=== PATIENT | male | born 1975 | race Caucasian/White ===

== ENCOUNTER 2019-10-01 12:16 | Inpatient (IN) | payer BC, OTHER ==
[~2019-10-01] VITALS: Ht 177.8 cm; Wt 97.7 kg
[2019-10-01] MEDS ORDERED: aspirin 81mg tab.chew PO ONE ×2 (12:50→15:15)
[2019-10-01 13:27] LABS: BASOPHILS % (AUTO) 0.4 % (0-1); EOSINOPHILS # (AUTO) 0.2 X10'3 (0-0.9); EOSINOPHILS % (AUTO) 1.5 % (0-6); HEMATOCRIT 43.3 % (42.0-52.0); HEMOGLOBIN 14.5 g/dl (14.0-17.9); LYMPHOCYTES # (AUTO) 0.9 X10'3 (1.1-4.8); LYMPHOCYTES % (AUTO) 8.3 % (21-51); MEAN CORPUSCULAR HEMOGLOBIN 29.5 PG (27.0-31.0); MEAN CORPUSCULAR HGB CONC 33.4 g/dL (33.0-36.5); MEAN CORPUSCULAR VOLUME 88.4 FL (78-98); MONOCYTES % (AUTO) 9.4 % (2-12); NEUTROPHILS # (AUTO) 8.8 X10'3 (1.8-7.7); NEUTROPHILS % (AUTO) 80.4 % (42-75); PLATELET COUNT 134 X10'3 (140-440); RED CELL DISTRIBUTION WIDTH 13.4 % (11.5-14.5)
[2019-10-01 13:34] LABS: D-DIMER 0.34 MG/L FEU (0-0.50)
[2019-10-01 13:42] LABS: ALANINE AMINOTRANSFERASE 21 U/L (12-78); ALBUMIN 3.8 G/DL (3.4-5.0); ALKALINE PHOSPHATASE 55 IU/L (46-116); ANION GAP 9 (8-16); ASPARTATE AMINO TRANSFERASE 19 U/L (10-37); BILIRUBIN,TOTAL 0.7 MG/DL (0.1-1.0); BLOOD UREA NITROGEN 18 MG/DL (7-18); BUN/CREATININE RATIO 15.4 (5.4-32.0); CALCIUM 8.6 MG/DL (8.5-10.1); CHLORIDE 101 MMOL/L (99-107); CREATININE 1.17 MG/DL (0.60-1.10); GLUCOSE 119 MG/DL (70-104); POTASSIUM 3.9 MMOL/L (3.5-5.1); SODIUM 136 MMOL/L (135-145); TOTAL CARBON DIOXIDE 25.6 MMOL/L (24-32); TOTAL PROTEIN 7.8 G/DL (6.4-8.2); eGFR 68 ML/MIN
[2019-10-01 13:48] LABS: MAGNESIUM 1.8 MG/DL (1.5-2.4)
[2019-10-01] MEDS ORDERED: predniSONE 20 mg tablet PO ONE (13:55)
[2019-10-01] MEDS ORDERED: normal saline 1000ML IV soln IVB ONE (13:55)
[2019-10-01] MEDS ORDERED: acetaminophen 325mg tablet PO ONE (13:55)
[2019-10-01] MEDS ORDERED: heparin 10,000 units/1 ML INJ IV PRN (15:05)
[2019-10-01] MEDS ORDERED: heparin 10,000 units/1 ML INJ IV ONE ×2 (15:05→15:15)
[2019-10-01] MEDS: heparin 25,000 UNIT/250ml bag 250 ML IV SCH (15:18)
[2019-10-01] MEDS ORDERED: LEVO25TA2 PO (15:28)
--- NOTE | 2019-10-01 15:41 | NUR ---
ECHO AT BEDSIDE
[2019-10-01 15:46] LABS: PARTIAL THROMBOPLASTIN TIME 31 SECONDS (22-32)
[2019-10-01] MEDS ORDERED: magnesium 4gm in 100ml NS 100 ML IV PRN (16:40)
[2019-10-01] MEDS ORDERED: magnesium 2GM in 50ml NS 50 ML IV PRN (16:40)
[2019-10-01] MEDS ORDERED: morphine 2 MG/ML inj. syringe IV PRN ×2 (16:40)
[2019-10-01] MEDS ORDERED: magnesium Cl slow-release 64mg tablet PO PRN (16:40)
[2019-10-01] MEDS ORDERED: ipratropium/albuterol 3ml nebule NEB PRN (16:40)
[2019-10-01] MEDS ORDERED: diphenhydrAMINE 25mg capsule PO PRN (16:40)
[2019-10-01] MEDS ORDERED: acetaminophen 650mg rectal suppository RC PRN (16:40)
[2019-10-01] MEDS ORDERED: HYDROcodone/acetaminophen 10/325mg tab PO PRN (16:40)
[2019-10-01] MEDS ORDERED: mag hydrox/Alum hydrox/simeth 30ml oral suspension PO PRN (16:40)
[2019-10-01] MEDS ORDERED: potassium Cl 20 mEq SR tablet PO PRN ×2 (16:40)
[2019-10-01] MEDS ORDERED: acetaminophen 325mg tablet PO PRN ×2 (16:40)
[2019-10-01] MEDS ORDERED: bisacodyl 10mg suppository rectal RC PRN (16:40)
[2019-10-01] MEDS ORDERED: ondansetron/PF 4mg/2ml inj IV PRN (16:40)
[2019-10-01] MEDS ORDERED: potassium CL 10mEq/100ml bag 100 ML IV PRN ×2 (16:40)
[2019-10-01] MEDS ORDERED: HYDROcodone/acetaminophen 5mg/325mg tablet PO PRN (16:40)
[2019-10-01] MEDS ORDERED: magnesium hydroxide 30ml (MOM) UD suspension PO PRN (16:40)
[2019-10-01 18:09] LABS: HEMOGLOBIN A1C 5.8 % (4.5-6.2)
[2019-10-01] MEDS: normal saline 1000ml 1,000 ML IV SCH (18:24)
[2019-10-01] MEDS ORDERED: TEST200V10 IM (18:55)
[2019-10-01] MEDS: K and/or MAG REPLACEMENT MC SCH (20:00)
[2019-10-01] MEDS ORDERED: heparin, porcine 5000 units/ml vial SQ SCH (20:00)
[2019-10-01 22:00] VITALS: BP 109/60
--- NOTE | 2019-10-01 22:51 | NUR ---
12 leak EKG obtained per protocol. No new finding when compared to the previous EKG. Bob, the charge nurse reviewed the EKG. Patient is asymptomatic, no chest pain or shortness of breath.
[2019-10-02] VITALS (11 sets, daily range): BP systolic 101–130; BP diastolic 42–63
[2019-10-02] MEDS: normal saline 1000ml 1,000 ML IV SCH ×2 (02:24→12:39)
[2019-10-02 05:25] LABS: BASOPHILS % (AUTO) 0.5 % (0-1); EOSINOPHILS % (AUTO) 0.1 % (0-6); HEMATOCRIT 40.7 % (42.0-52.0); HEMOGLOBIN 13.5 g/dl (14.0-17.9); LYMPHOCYTES # (AUTO) 1.3 X10'3 (1.1-4.8); LYMPHOCYTES % (AUTO) 15.3 % (21-51); MEAN CORPUSCULAR HGB CONC 33.3 g/dL (33.0-36.5); MEAN CORPUSCULAR VOLUME 90.2 FL (78-98); MEAN PLATELET VOLUME 10.7 FL (7.4-10.4); MONOCYTES # (AUTO) 0.7 X10'3 (0-0.9); MONOCYTES % (AUTO) 8.3 % (2-12); NEUTROPHILS # (AUTO) 6.5 X10'3 (1.8-7.7); NEUTROPHILS % (AUTO) 75.8 % (42-75); PLATELET COUNT 120 X10'3 (140-440); RED BLOOD COUNT 4.51 X10'6 (4.70-6.10); RED CELL DISTRIBUTION WIDTH 13.5 % (11.5-14.5); WHITE BLOOD COUNT 8.6 X10'3 (4.5-11.0)
[2019-10-02 05:43] LABS: ALANINE AMINOTRANSFERASE 18 U/L (12-78); ALBUMIN 3.1 G/DL (3.4-5.0); ALBUMIN/GLOBULIN RATIO 0.8 (1.1-1.5); ALKALINE PHOSPHATASE 47 IU/L (46-116); ANION GAP 10 (8-16); ASPARTATE AMINO TRANSFERASE 11 U/L (10-37); BILIRUBIN,TOTAL 0.5 MG/DL (0.1-1.0); BLOOD UREA NITROGEN 17 MG/DL (7-18); BUN/CREATININE RATIO 18.1 (5.4-32.0); CALCIUM 8.3 MG/DL (8.5-10.1); CHLORIDE 105 MMOL/L (99-107); CHOLESTEROL 146 MG/DL (0-200); CREATININE 0.94 MG/DL (0.60-1.10); GLUCOSE 135 MG/DL (70-104); HDL CHOLESTEROL 48 MG/DL (35-60); LDL CHOLESTEROL 83 MG/DL (50-100); MAGNESIUM 2.1 MG/DL (1.5-2.4); POTASSIUM 4.1 MMOL/L (3.5-5.1); SODIUM 140 MMOL/L (135-145); TRIGLYCERIDES 61 MG/DL (20-135); eGFR 87 ML/MIN
[2019-10-02] MEDS: heparin 25,000 UNIT/250ml bag 250 ML IV SCH (06:00)
--- NOTE | 2019-10-02 06:00 | NUR ---
Patient in room PCU 3022. I have received report from Walter HARRIS and had the opportunity to ask questions and assume patient care.
--- NOTE | 2019-10-02 06:24 | NUR ---
Problems reprioritized. Patient report given Gordo, questions answered & plan of care reviewed with .
[2019-10-02] MEDS: K and/or MAG REPLACEMENT MC SCH (07:48)
[2019-10-02] MEDS ORDERED: levoTHYROXINE 25mcg tablet PO SCH (08:00)
[2019-10-02] MEDS ORDERED: aminophylline 250mg/10ml inj. IV PRN (09:05)
[2019-10-02] MEDS ORDERED: metoprolol tartrate 1mg/ml inj IV PRN (09:05)
[2019-10-02] MEDS ORDERED: regadenoson 0.4mg/5ml syringe IV ONE (09:05)
[2019-10-02] MEDS ORDERED: nitroGLYCERIN 0.4mg SUBLingual tab SL PRN (09:05)
[2019-10-02] MEDS ORDERED: ALBU8.5H8 INH (13:30)
--- NOTE | 2019-10-02 14:11 | NUR ---
Called in new prescription to [facility] Katiana
--- NOTE | 2019-10-02 14:40 | NUR ---
Per MD orders, patient stable for discharge home. Discharge instructions reviewed with patient and all questions answered to patient satisfaction. New prescriptions called in to pharmacy of preference. PIV discontinued; cannula intact. Tele monitoring discontinued. All belongings sent with patient. Ambulated to private vehicle.
== END 2019-10-02 18:41 | disposition home or self-care (01) | DRG 866 ==
LOC: ER 12:17 → ED HOLD 16:39 → PCU 3S 22:12
PROVIDERS: ADMIT Family Medicine; ATTEND Internal Medicine Cardiovascular Disease
DX: B34.9 Viral infection, unspecified (principal); J45.901 Unspecified asthma with (acute) exacerbation; E86.0 Dehydration; G47.30 Sleep apnea, unspecified; Z82.49 Family history of ischemic heart disease and other diseases of the circulatory system; Z20.828 Contact with and (suspected) exposure to other viral communicable diseases
CPT/HCPCS: 36415; 71045; 78452; 80053; 80061; 83036; 83605; 83735; 83880; 84100; 84145; 84443; 84484; 85025; 85379; 85610; 85730; 87040; 87081; 87502; 87503; 87635; 93005; 93017; 93306; 94760; 99285; A9500; G0378; J1644; J2785; J7030; J7512

== ENCOUNTER 2020-08-28 11:04 | Emergency (ER) | payer BC ==
[~2020-08-28] VITALS: Ht 177.8 cm; Wt 106.8 kg
[~2020-08-28 11:04] MED LIST: ALBU8.5H8 INH; LEVO25TA2 PO; LIDOcaine 1% W/epiNEPHrine 1:100,000 20ml vial ONE; TEST200V10 IM
[2020-08-28 11:09] VITALS: BP 143/95
[2020-08-28] MEDS ORDERED: CEPH250T PO (12:20)
== END 2020-08-28 12:37 | disposition home or self-care (01) ==
LOC: ER 11:04
DX: L02.511 Cutaneous abscess of right hand (principal); F15.90 Other stimulant use, unspecified, uncomplicated; Z79.899 Other long term (current) drug therapy
CPT/HCPCS: 26010; 99283

== ENCOUNTER 2020-11-14 16:01 | Emergency (ER) | payer BC ==
[~2020-11-14] VITALS: Ht 177.8 cm; Wt 100.0 kg
[~2020-11-14 16:01] MED LIST changes: -LIDOcaine 1% W/epiNEPHrine 1:100,000 20ml vial ONE
[2020-11-14 16:17] VITALS: BP 113/68
[2020-11-14] MEDS ORDERED: IBUP-1984 PO (18:04)
[2020-11-14] MEDS ORDERED: ketorolac tromethamine 15mg/ml inj. IM ONE (18:05)
== END 2020-11-14 18:31 | disposition home or self-care (01) ==
LOC: ER 16:02
DX: M79.671 Pain in right foot (principal); E07.9 Disorder of thyroid, unspecified; F15.90 Other stimulant use, unspecified, uncomplicated; Z79.899 Other long term (current) drug therapy
CPT/HCPCS: 73630; 96372; 99283; J1885

== ENCOUNTER 2020-12-04 12:35 | Emergency (ER) | payer BC ==
[~2020-12-04] VITALS: Ht 177.8 cm; Wt 100.0 kg
[~2020-12-04 12:35] MED LIST changes: +ALBU8.5H17 INH; -ALBU8.5H8 INH
--- NOTE | 2020-12-04 12:45 | NUR ---
EKG 1240 LM
[2020-12-04 13:07] LABS: BASOPHILS # (AUTO) 0.1 X10'3 (0-0.2); BASOPHILS % (AUTO) 0.6 % (0-1); EOSINOPHILS # (AUTO) 0.5 X10'3 (0-0.9); HEMATOCRIT 38.1 % (42.0-52.0); LYMPHOCYTES % (AUTO) 20.4 % (21-51); MEAN CORPUSCULAR HEMOGLOBIN 30.2 PG (27.0-31.0); MEAN CORPUSCULAR HGB CONC 34.3 g/dL (33.0-36.5); MEAN CORPUSCULAR VOLUME 88.2 FL (78-98); MEAN PLATELET VOLUME 10.4 FL (7.4-10.4); MONOCYTES # (AUTO) 1.1 X10'3 (0-0.9); MONOCYTES % (AUTO) 11.7 % (2-12); NEUTROPHILS # (AUTO) 5.9 X10'3 (1.8-7.7); NEUTROPHILS % (AUTO) 62.3 % (42-75); PLATELET COUNT 138 X10'3 (140-440); RED BLOOD COUNT 4.32 X10'6 (4.70-6.10); RED CELL DISTRIBUTION WIDTH 12.8 % (11.5-14.5); WHITE BLOOD COUNT 9.6 X10'3 (4.5-11.0)
[2020-12-04 13:27] VITALS: BP 104/66
[2020-12-04 13:27] LABS: ALANINE AMINOTRANSFERASE 13 U/L (12-78); ALBUMIN 3.6 G/DL (3.4-5.0); ALBUMIN/GLOBULIN RATIO 0.9 (1.1-1.5); ALKALINE PHOSPHATASE 67 IU/L (46-116); ANION GAP 10 (8-16); ASPARTATE AMINO TRANSFERASE 14 U/L (10-37); BILIRUBIN,TOTAL 0.5 MG/DL (0.1-1.0); BLOOD UREA NITROGEN 21 MG/DL (7-18); BUN/CREATININE RATIO 19.6 (5.4-32.0); CALCIUM 8.4 MG/DL (8.5-10.1); CHLORIDE 105 MMOL/L (99-107); CREATININE 1.07 MG/DL (0.60-1.10); GLUCOSE 117 MG/DL (70-104); POTASSIUM 4.1 MMOL/L (3.5-5.1); SODIUM 142 MMOL/L (135-145); TOTAL CARBON DIOXIDE 26.9 MMOL/L (24-32); TOTAL PROTEIN 7.5 G/DL (6.4-8.2); eGFR 75 ML/MIN
[2020-12-04] MEDS ORDERED: OMEP40CA21 PO (13:36)
--- NOTE | 2020-12-04 14:10 | NUR ---
PT TI'S GI COCKTAIL PRIOR TO D/C, NOTIFIED
[2020-12-04] MEDS ORDERED: LIDOcaine Viscous 15ml cup MM ONE (14:30)
[2020-12-04] MEDS ORDERED: mag hydrox/Alum hydrox/simeth 30ml oral suspension PO ONE (14:30)
== END 2020-12-04 14:41 | disposition home or self-care (01) ==
LOC: ER 12:36
DX: R12 Heartburn (principal); E07.9 Disorder of thyroid, unspecified; R94.31 Abnormal electrocardiogram [ECG] [EKG]; F15.90 Other stimulant use, unspecified, uncomplicated; Z79.899 Other long term (current) drug therapy
CPT/HCPCS: 36415; 80053; 84484; 85025; 93005; 99291

== ENCOUNTER 2021-10-04 09:26 | Inpatient (IN) | payer BC ==
[~2021-10-04] VITALS: Ht 177.8 cm; Wt 105.0 kg
[~2021-10-04 09:26] MED LIST changes: -TEST200V10 IM; +TEST200V33 IM
[2021-10-04 10:15] LABS: BASOPHILS # (AUTO) 0.1 X10'3 (0-0.2); BASOPHILS % (AUTO) 0.7 % (0-1); EOSINOPHILS # (AUTO) 0.2 X10'3 (0-0.9); EOSINOPHILS % (AUTO) 1.4 % (0-6); HEMATOCRIT 38.1 % (42.0-52.0); HEMOGLOBIN 12.9 g/dl (14.0-17.9); LYMPHOCYTES # (AUTO) 1.8 X10'3 (1.1-4.8); LYMPHOCYTES % (AUTO) 15.8 % (21-51); MEAN CORPUSCULAR HEMOGLOBIN 30.2 PG (27.0-31.0); MEAN CORPUSCULAR HGB CONC 33.8 g/dL (33.0-36.5); MEAN CORPUSCULAR VOLUME 89.1 FL (78-98); MEAN PLATELET VOLUME 9.9 FL (7.4-10.4); MONOCYTES # (AUTO) 1.4 X10'3 (0-0.9); MONOCYTES % (AUTO) 12.2 % (2-12); NEUTROPHILS # (AUTO) 8.1 X10'3 (1.8-7.7); NEUTROPHILS % (AUTO) 69.9 % (42-75); PLATELET COUNT 184 X10'3 (140-440); RED BLOOD COUNT 4.28 X10'6 (4.70-6.10); RED CELL DISTRIBUTION WIDTH 12.5 % (11.5-14.5); WHITE BLOOD COUNT 11.6 X10'3 (4.5-11.0)
[2021-10-04 10:31] LABS: ALANINE AMINOTRANSFERASE 36 U/L (12-78); ALBUMIN 3.4 G/DL (3.4-5.0); ALBUMIN/GLOBULIN RATIO 0.7 (1.1-1.5); ALKALINE PHOSPHATASE 59 IU/L (46-116); ANION GAP 9 (8-16); ASPARTATE AMINO TRANSFERASE 19 U/L (10-37); BILIRUBIN,TOTAL 0.8 MG/DL (0.1-1.0); BLOOD UREA NITROGEN 15 MG/DL (7-18); BUN/CREATININE RATIO 12.7 (5.4-32.0); CHLORIDE 102 MMOL/L (99-107); CREATININE 1.18 MG/DL (0.60-1.10); GLUCOSE 127 MG/DL (70-104); POTASSIUM 4.1 MMOL/L (3.5-5.1); SODIUM 138 MMOL/L (135-145); TOTAL CARBON DIOXIDE 26.8 MMOL/L (24-32); eGFR 80 ML/MIN
[2021-10-04 10:33] LABS: C-REACTIVE PROTEIN 25.62 MG/DL (0.0-0.5)
[2021-10-04 10:47] LABS: CLARITY,URINE CLEAR (Clear); COLOR,URINE YELLOW (Yellow); GLUCOSE, URINE NEGATIVE (Neg); KETONES,URINE NEGATIVE (Neg); LEUKOCYTE ESTERASE ,URINE NEGATIVE (Neg); NITRITES, URINE NEGATIVE (Neg); OCCULT BLOOD,URINE NEGATIVE (Neg); PROTEIN,URINE TRACE mg/dl (Neg); UROBILINOGEN,URINE 0.2 E.U/dL (0.2-1.0)
[2021-10-04 10:53] LABS: UA COLLECTION TYPE CLN CATCH MIDSTREAM
[2021-10-04 11:20] LABS: BACTERIA,URINE FEW /HPF (Neg); WBC,URINE 0-4 /HPF (0-4)
[2021-10-04 11:22] LABS: TRANSITIONAL EPI CELLS,URINE FEW /HPF
[2021-10-04 11:23] LABS: SQUAMOUS EPITHELIAL CELL,UR FEW /LPF (FEW)
[2021-10-04 11:24] LABS: RBC,URINE 0-2 /HPF (0-2)
[2021-10-04] MEDS ORDERED: morphine 2 MG/ML inj. syringe IV STA (11:44)
[2021-10-04] MEDS ORDERED: mag hydrox/Alum hydrox/simeth 30ml oral suspension PO STA (12:38)
[2021-10-04] MEDS ORDERED: LIDOcaine Viscous 15ml cup MM STA (12:38)
[2021-10-04] MEDS ORDERED: morphine 4 MG/ML inj SYRINge IV STA (12:39)
[2021-10-04] MEDS ORDERED: LISD60CA PO (12:49)
[2021-10-04] MEDS ORDERED: SYN0.088T (12:49)
[2021-10-04] MEDS ORDERED: IOHEXOL 350 MG/ML INFUS..BTL 125ML IV ONE (14:21)
--- NOTE | 2021-10-04 14:45 | NUR ---
pt to ct.
[2021-10-04] MEDS ORDERED: HYDROmorphone 1 mg/ml syringe IV STA (14:54)
[2021-10-04] MEDS ORDERED: ketorolac trometh. 30mg/ml inj. IV ONE (15:15)
[2021-10-04 15:37] LABS: APTT 34 SECONDS (22-32)
[2021-10-04] MEDS ORDERED: nitroGLYCERIN 0.4mg SUBLingual tab SL PRN (16:20)
[2021-10-04] MEDS ORDERED: TESTOSTERONE CYPIONATE 200 MG/ML VIAL IM SCH (16:20)
[2021-10-04] MEDS ORDERED: magnesium 4gm in 100ml NS 100 ML IV PRN (16:20)
[2021-10-04] MEDS ORDERED: potassium CL 10mEq/100ml bag 100 ML IV PRN (16:20)
[2021-10-04] MEDS ORDERED: ondansetron/PF 4mg/2ml inj IV PRN (16:20)
[2021-10-04] MEDS ORDERED: acetaminophen 325mg tablet PO PRN ×2 (16:20)
[2021-10-04] MEDS ORDERED: magnesium 2GM in 50ml NS 50 ML IV PRN (16:20)
[2021-10-04] MEDS ORDERED: regadenoson 0.4mg/5ml syringe IV PRN (16:20)
[2021-10-04] MEDS ORDERED: magnesium hydroxide 30ml (MOM) UD suspension PO PRN (16:20)
[2021-10-04] MEDS ORDERED: diphenhydrAMINE 25mg capsule PO PRN (16:20)
[2021-10-04] MEDS ORDERED: HYDROcodone/acetaminophen 5mg/325mg tablet PO PRN (16:20)
[2021-10-04] MEDS ORDERED: magnesium Cl slow-release 64mg tablet PO PRN (16:20)
[2021-10-04] MEDS ORDERED: acetaminophen 650mg rectal suppository RC PRN (16:20)
[2021-10-04] MEDS ORDERED: aminophylline 250mg/10ml inj. IV PRN (16:20)
[2021-10-04] MEDS ORDERED: ALBUTEROL INHALER 1 PUFF/90 MCG INHALER IH PRN (16:20)
[2021-10-04] MEDS ORDERED: bisacodyl 10mg suppository rectal RC PRN (16:20)
[2021-10-04] MEDS ORDERED: POTASSIUM BICARB 20meq eff tab 20 MEQ TABLET.EFF PO PRN ×2 (16:20)
[2021-10-04] MEDS ORDERED: morphine 2 MG/ML inj. syringe IV PRN (16:20)
[2021-10-04] MEDS ORDERED: metoprolol tartrate 1mg/ml inj IV PRN (16:20)
[2021-10-04] MEDS ORDERED: ANAS1TAB10 (17:06)
[2021-10-04 17:08] LABS: HEMOGLOBIN A1C 5.8 % (4.5-6.2)
[2021-10-04] MEDS ORDERED: FLUT16SP26 BOTHNARES (17:08)
[2021-10-04] MEDS ORDERED: albuterol 2.5 MG/3 ML nebule NEB PRN (17:10)
[2021-10-04] MEDS: normal saline 1000ml 1,000 ML IV SCH (17:12)
[2021-10-04] MEDS: HYDROcodone/acetaminophen 10/325mg tab PO PRN (17:35)
[2021-10-04 18:43] LABS: URINE AMPHETAMINE SCREEN NEGATIVE (Neg); URINE BARBITUATE SCREEN NEGATIVE (Neg); URINE BENZODIAZEPINES SCREEN NEGATIVE (Neg); URINE CANNABINOID SCREEN NEGATIVE (Neg); URINE COCAINE SCREEN NEGATIVE (Neg); URINE METHADONE SCREEN NEGATIVE (Neg); URINE OPIATE SCREEN NEGATIVE (Neg); URINE PHENCYCLIDINE SCREEN NEGATIVE (Neg)
[2021-10-04 18:47] LABS: LIPASE 61 U/L (73-393)
[2021-10-04 18:50] VITALS: BP 120/77
[2021-10-04] MEDS: pantoprazole 40MG/NS 100ML BAG 100 ML IV SCH (19:50)
[2021-10-04] MEDS: K and/or MAG REPLACEMENT MC SCH (20:00)
[2021-10-04] MEDS: docusate sod 100mg capsule PO SCH (20:29)
[2021-10-04] MEDS: heparin, porcine 5000 units/ml vial SQ SCH (20:30)
[2021-10-04] MEDS: morphine 2 MG/ML inj. syringe IV PRN (21:16)
[2021-10-04] MEDS ORDERED: LORazepam 2 mg/ml vial IV PRN (22:55)
[2021-10-04] MEDS ORDERED: LORazepam 1 MG tablet PO PRN (22:55)
[2021-10-04 23:53] LABS: ETHANOL < 0.010 GM/DL (0.0-0.010)
[2021-10-05] VITALS (18 sets, daily range): BP systolic 98–144; BP diastolic 52–78
[2021-10-05] MEDS: morphine 2 MG/ML inj. syringe IV PRN ×2 (01:31→05:22)
[2021-10-05] MEDS: normal saline 1000ml 1,000 ML IV SCH ×3 (02:30→16:59)
[2021-10-05 06:32] LABS: BASOPHILS # (AUTO) 0.1 X10'3 (0-0.2); BASOPHILS % (AUTO) 0.6 % (0-1); EOSINOPHILS # (AUTO) 0.3 X10'3 (0-0.9); EOSINOPHILS % (AUTO) 2.9 % (0-6); HEMATOCRIT 34.7 % (42.0-52.0); HEMOGLOBIN 11.8 g/dl (14.0-17.9); LYMPHOCYTES # (AUTO) 1.9 X10'3 (1.1-4.8); LYMPHOCYTES % (AUTO) 19.8 % (21-51); MEAN CORPUSCULAR HEMOGLOBIN 30.5 PG (27.0-31.0); MEAN CORPUSCULAR HGB CONC 34.2 g/dL (33.0-36.5); MEAN CORPUSCULAR VOLUME 89.1 FL (78-98); MEAN PLATELET VOLUME 9.8 FL (7.4-10.4); MONOCYTES # (AUTO) 1.3 X10'3 (0-0.9); MONOCYTES % (AUTO) 12.8 % (2-12); NEUTROPHILS # (AUTO) 6.2 X10'3 (1.8-7.7); NEUTROPHILS % (AUTO) 63.9 % (42-75); PLATELET COUNT 193 X10'3 (140-440); RED BLOOD COUNT 3.89 X10'6 (4.70-6.10); RED CELL DISTRIBUTION WIDTH 12.6 % (11.5-14.5); WHITE BLOOD COUNT 9.7 X10'3 (4.5-11.0)
--- NOTE | 2021-10-05 06:39 | NUR ---
Problems reprioritized. Patient report given, questions answered & plan of care reviewed with Ruth. Addendum: 10/05/21 at 0640 by Edu Will RN Amended: Links added.
[2021-10-05 06:40] LABS: D-DIMER 2.38 MG/L FEU (0-0.50)
[2021-10-05 06:48] LABS: ALANINE AMINOTRANSFERASE 52 U/L (12-78); ALBUMIN 2.9 G/DL (3.4-5.0); ALBUMIN/GLOBULIN RATIO 0.7 (1.1-1.5); ALKALINE PHOSPHATASE 58 IU/L (46-116); ANION GAP 8 (8-16); ASPARTATE AMINO TRANSFERASE 33 U/L (10-37); BILIRUBIN,TOTAL 0.5 MG/DL (0.1-1.0); BLOOD UREA NITROGEN 16 MG/DL (7-18); BUN/CREATININE RATIO 12.8 (5.4-32.0); C-REACTIVE PROTEIN 23.79 MG/DL (0.0-0.5); CALCIUM 8.3 MG/DL (8.5-10.1); CHLORIDE 103 MMOL/L (99-107); CHOL/HDL RATIO 3.6 (0.00-4.99); CHOLESTEROL 114 MG/DL (0-200); CREATININE 1.25 MG/DL (0.60-1.10); GLUCOSE 129 MG/DL (70-104); HDL CHOLESTEROL 32 MG/DL (35-60); LDL CHOLESTEROL 63 MG/DL (50-100); MAGNESIUM 2.2 MG/DL (1.5-2.4); PHOSPHORUS 4.2 MG/DL (2.3-4.5); POTASSIUM 4.4 MMOL/L (3.5-5.1); SODIUM 139 MMOL/L (135-145); TOTAL CARBON DIOXIDE 28.4 MMOL/L (24-32); TOTAL PROTEIN 7.2 G/DL (6.4-8.2); TRIGLYCERIDES 73 MG/DL (20-135); eGFR 75 ML/MIN
[2021-10-05] MEDS: thiamine 100mg/ml 2ml inj. IV SCH ×3 (07:57→21:49)
[2021-10-05] MEDS: pantoprazole 40MG/NS 100ML BAG 100 ML IV SCH ×2 (07:57→19:50)
[2021-10-05] MEDS: multivitamins, therapeutics tablet PO SCH (07:59)
[2021-10-05] MEDS: anastrozole 1 MG tablet PO SCH (07:59)
[2021-10-05] MEDS: docusate sod 100mg capsule PO SCH ×2 (07:59→19:43)
[2021-10-05] MEDS: levoTHYROXINE 88mcg tablet PO SCH (07:59)
[2021-10-05] MEDS: heparin, porcine 5000 units/ml vial SQ SCH ×2 (08:00→19:41)
[2021-10-05] MEDS: K and/or MAG REPLACEMENT MC SCH ×2 (08:00→20:51)
[2021-10-05] MEDS ORDERED: lisdexamfetamine dimesylate 60mg capsule PO SCH (08:00)
--- NOTE | 2021-10-05 08:26 | NUR ---
Message: Wallace Black 3012B Pt. etting heart work up for CP/ but c/o respiratory CP on inhalation only. Crackles RLL posterior and in/ex wheezes RUL posterior. CXR shows pulmonary edema. Pt. on 100ml NS/ hr. DC fluids? Lasix? Ruth [id number]
--- NOTE | 2021-10-05 08:57 | NUR ---
Message: Wallace Box [id number] Refused Alanna r/t pain. c/o 02/13 inspiratory lung pain around bottom of his ribs. States non of the pain medication given has worked at all except the 2 mg iv dilaudid which is not currently ordered. Ruth [id number]
[2021-10-05] MEDS: lisdexamfetamine dimesylate 10mg capsule PO SCH (09:00)
[2021-10-05] MEDS: lisdexamfetamine dimesylate 40mg capsule PO SCH (09:00)
[2021-10-05] MEDS ORDERED: lisdexamfetamine dimesylate 30mg capsule PO SCH (09:30)
--- NOTE | 2021-10-05 09:37 | NUR ---
Wallace Black 3012B Pt. getting very agitated and frustrated talking about leaving the hospital AMA. States his pain is not addressed MS does not work at all. Sates no one explaining care to him.Ativan already. Ruth [phone]
--- NOTE | 2021-10-05 11:15 | NUR ---
Hospitalist rounding on floor and assessing pt. Aware of uncontrollable pain and ST evlevation in most recent EKG. This is chronic.
[2021-10-05] MEDS: HYDROmorphone 1 mg/ml syringe IV PRN ×3 (11:21→21:50)
[2021-10-05] MEDS: HYDROcodone/acetaminophen 10/325mg tab PO PRN ×2 (13:50→19:43)
--- NOTE | 2021-10-05 14:32 | NUR ---
Called US for abd US. They are coming up now per tech
[2021-10-05] MEDS ORDERED: piperacillin/tazo 3.375gm/50ml 50 ML IV SCH (16:00)
[2021-10-05] MEDS: ibuprofen 200mg tablet PO SCH ×2 (17:49→19:43)
--- NOTE | 2021-10-05 18:32 | NUR ---
Gave report to Leslie HARRIS.
--- NOTE | 2021-10-05 18:39 | NUR ---
Patient in room PCU 3012 B. I have received report from Ruth HARRIS and had the opportunity to ask questions and assume patient care.
[2021-10-05] MEDS: colchicine 0.6mg tablet PO SCH (19:41)
[2021-10-06] MEDS: ibuprofen 200mg tablet PO SCH ×4 (02:04→20:21)
[2021-10-06] MEDS: morphine 2 MG/ML inj. syringe IV PRN ×2 (02:13→19:39)
[2021-10-06] MEDS: normal saline 1000ml 1,000 ML IV SCH ×2 (05:22→17:37)
[2021-10-06 06:00] VITALS: BP 109/71
--- NOTE | 2021-10-06 06:28 | NUR ---
Problems reprioritized. Patient report given, questions answered & plan of care reviewed with Kaiden HARRIS.
[2021-10-06 07:17] LABS: BASOPHILS # (AUTO) 0.1 X10'3 (0-0.2); BASOPHILS % (AUTO) 0.7 % (0-1); D-DIMER 3.72 MG/L FEU (0-0.50); EOSINOPHILS # (AUTO) 0.3 X10'3 (0-0.9); HEMATOCRIT 32.9 % (42.0-52.0); HEMOGLOBIN 11.2 g/dl (14.0-17.9); LYMPHOCYTES # (AUTO) 1.3 X10'3 (1.1-4.8); LYMPHOCYTES % (AUTO) 17.1 % (21-51); MEAN CORPUSCULAR HEMOGLOBIN 30.1 PG (27.0-31.0); MEAN CORPUSCULAR VOLUME 88.4 FL (78-98); MEAN PLATELET VOLUME 9.5 FL (7.4-10.4); MONOCYTES # (AUTO) 1.1 X10'3 (0-0.9); MONOCYTES % (AUTO) 14.5 % (2-12); NEUTROPHILS % (AUTO) 63.7 % (42-75); PLATELET COUNT 208 X10'3 (140-440); RED BLOOD COUNT 3.72 X10'6 (4.70-6.10); RED CELL DISTRIBUTION WIDTH 12.7 % (11.5-14.5); WHITE BLOOD COUNT 7.9 X10'3 (4.5-11.0)
[2021-10-06 07:27] LABS: ANION GAP 6 (8-16); BLOOD UREA NITROGEN 19 MG/DL (7-18); BUN/CREATININE RATIO 17.4 (5.4-32.0); CALCIUM 8.4 MG/DL (8.5-10.1); CHLORIDE 106 MMOL/L (99-107); CREATININE 1.09 MG/DL (0.60-1.10); GLUCOSE 107 MG/DL (70-104); MAGNESIUM 2.1 MG/DL (1.5-2.4); PHOSPHORUS 4.7 MG/DL (2.3-4.5); POTASSIUM 4.3 MMOL/L (3.5-5.1); SODIUM 140 MMOL/L (135-145); TOTAL CARBON DIOXIDE 28.4 MMOL/L (24-32); eGFR 88 ML/MIN
[2021-10-06 07:28] LABS: ALANINE AMINOTRANSFERASE 69 U/L (12-78); ALBUMIN 2.7 G/DL (3.4-5.0); ALBUMIN/GLOBULIN RATIO 0.6 (1.1-1.5); ALKALINE PHOSPHATASE 54 IU/L (46-116); ASPARTATE AMINO TRANSFERASE 34 U/L (10-37); BILIRUBIN,TOTAL 0.5 MG/DL (0.1-1.0); C-REACTIVE PROTEIN 18.76 MG/DL (0.0-0.5); TOTAL PROTEIN 6.9 G/DL (6.4-8.2)
[2021-10-06] MEDS: lisdexamfetamine dimesylate 40mg capsule PO SCH (07:53)
[2021-10-06] MEDS: lisdexamfetamine dimesylate 10mg capsule PO SCH (07:53)
[2021-10-06] MEDS: pantoprazole 40MG/NS 100ML BAG 100 ML IV SCH ×2 (07:53→19:25)
[2021-10-06] MEDS: heparin, porcine 5000 units/ml vial SQ SCH ×2 (07:54→19:26)
[2021-10-06] MEDS: thiamine 100mg/ml 2ml inj. IV SCH ×3 (07:54→21:53)
[2021-10-06] MEDS: anastrozole 1 MG tablet PO SCH (07:54)
[2021-10-06] MEDS: levoTHYROXINE 88mcg tablet PO SCH (07:55)
[2021-10-06] MEDS: colchicine 0.6mg tablet PO SCH ×2 (07:55→19:26)
[2021-10-06] MEDS: docusate sod 100mg capsule PO SCH ×2 (07:55→19:26)
[2021-10-06] MEDS: K and/or MAG REPLACEMENT MC SCH ×2 (07:56→20:00)
[2021-10-06] MEDS: multivitamins, therapeutics tablet PO SCH (07:58)
[2021-10-06] MEDS: HYDROmorphone 1 mg/ml syringe IV PRN (08:03)
[2021-10-06 11:00] VITALS: BP 111/64
[2021-10-06] MEDS ORDERED: sincalide inj 2.1 MCG in normal saline 50ml IV soln 50 ML IV ONE (11:45)
--- NOTE | 2021-10-06 12:10 | NUR ---
Message: NOEMÍ QUINTERO RM [id number]. NO THORACENTESIS NEEDED, PLEASE CALL PATIENT ASKING ABOUT DISCHARGE THANK YOU, AVANI HARRIS Custom Responses: promotional table spacer
[2021-10-06] MEDS: HYDROcodone/acetaminophen 10/325mg tab PO PRN (12:51)
[2021-10-06 15:00] VITALS: BP 120/79
[2021-10-06 18:00] VITALS: BP 131/77
[2021-10-06] MEDS: mag hydrox/Alum hydrox/simeth 30ml oral suspension PO PRN (19:26)
[2021-10-06 20:00] VITALS: BP_SYST 126; BP_SYST 136; BP_DIAS 80; BP_DIAS 84
[2021-10-06 22:00] VITALS: BP 132/82
[2021-10-07] MEDS: mag hydrox/Alum hydrox/simeth 30ml oral suspension PO PRN (01:11)
[2021-10-07] MEDS: ibuprofen 200mg tablet PO SCH ×2 (01:12→09:54)
--- NOTE | 2021-10-07 01:26 | NUR ---
Pt having c/o gas pain in abdomen. Pt stated he had a BM on 10/06/21. Pt stated it was LG firm stool. PRN Maalox administered. Pt up and ambulating with nursing staff. Will continue to monitior.
[2021-10-07 02:00] VITALS: BP 122/71
--- NOTE | 2021-10-07 02:14 | NUR ---
PAGER ID: [phone] Paged Dr. GONZALEZ: Regarding [facility] room 3012B, Pt is c/o intense gas pain. PRN Maalox already administered. Pt requesting GAS-X. Dali Griffith Pending response.
[2021-10-07 06:00] VITALS: BP 129/81
--- NOTE | 2021-10-07 06:07 | NUR ---
Problems reprioritized. Patient report given, questions answered & plan of care reviewed with YONI HARRIS.
[2021-10-07 06:14] LABS: BASOPHILS # (AUTO) 0.1 X10'3 (0-0.2); BASOPHILS % (AUTO) 0.9 % (0-1); EOSINOPHILS # (AUTO) 0.3 X10'3 (0-0.9); EOSINOPHILS % (AUTO) 4.3 % (0-6); HEMOGLOBIN 11.2 g/dl (14.0-17.9); LYMPHOCYTES # (AUTO) 1.5 X10'3 (1.1-4.8); LYMPHOCYTES % (AUTO) 22.4 % (21-51); MEAN CORPUSCULAR HEMOGLOBIN 30.9 PG (27.0-31.0); MEAN CORPUSCULAR HGB CONC 34.9 g/dL (33.0-36.5); MEAN CORPUSCULAR VOLUME 88.7 FL (78-98); MEAN PLATELET VOLUME 9.2 FL (7.4-10.4); MONOCYTES # (AUTO) 0.9 X10'3 (0-0.9); MONOCYTES % (AUTO) 14.1 % (2-12); NEUTROPHILS # (AUTO) 3.8 X10'3 (1.8-7.7); NEUTROPHILS % (AUTO) 58.3 % (42-75); PLATELET COUNT 231 X10'3 (140-440); RED BLOOD COUNT 3.61 X10'6 (4.70-6.10); RED CELL DISTRIBUTION WIDTH 12.3 % (11.5-14.5); WHITE BLOOD COUNT 6.6 X10'3 (4.5-11.0)
--- NOTE | 2021-10-07 06:30 | NUR ---
Patient in room PCU 3012. I have received report from Meghan HARRIS and had the opportunity to ask questions and assume patient care.
[2021-10-07 06:31] LABS: D-DIMER 5.05 MG/L FEU (0-0.50)
[2021-10-07 06:40] LABS: ALANINE AMINOTRANSFERASE 67 U/L (12-78); ALBUMIN 2.6 G/DL (3.4-5.0); ALBUMIN/GLOBULIN RATIO 0.7 (1.1-1.5); ALKALINE PHOSPHATASE 58 IU/L (46-116); ANION GAP 7 (8-16); ASPARTATE AMINO TRANSFERASE 29 U/L (10-37); BILIRUBIN,TOTAL 0.5 MG/DL (0.1-1.0); BLOOD UREA NITROGEN 15 MG/DL (7-18); BUN/CREATININE RATIO 13.8 (5.4-32.0); C-REACTIVE PROTEIN 14.55 MG/DL (0.0-0.5); CALCIUM 8.5 MG/DL (8.5-10.1); CHLORIDE 107 MMOL/L (99-107); CREATININE 1.09 MG/DL (0.60-1.10); GLUCOSE 101 MG/DL (70-104); MAGNESIUM 2.1 MG/DL (1.5-2.4); PHOSPHORUS 4.9 MG/DL (2.3-4.5); POTASSIUM 3.9 MMOL/L (3.5-5.1); SODIUM 141 MMOL/L (135-145); TOTAL CARBON DIOXIDE 27.3 MMOL/L (24-32); TOTAL PROTEIN 6.6 G/DL (6.4-8.2); eGFR 88 ML/MIN
[2021-10-07] MEDS ORDERED: pantoprazole 40mg Tablet.DR PO SCH (07:00)
[2021-10-07] MEDS ORDERED: sincalide inj 2.1 MCG in normal saline 50ml IV soln 50 ML IV ONE (07:00)
[2021-10-07] MEDS: docusate sod 100mg capsule PO SCH (08:00)
[2021-10-07] MEDS: HYDROcodone/acetaminophen 10/325mg tab PO PRN (09:49)
[2021-10-07] MEDS: lisdexamfetamine dimesylate 40mg capsule PO SCH (09:51)
[2021-10-07] MEDS: levoTHYROXINE 88mcg tablet PO SCH (09:52)
[2021-10-07] MEDS: lisdexamfetamine dimesylate 10mg capsule PO SCH (09:52)
[2021-10-07] MEDS: multivitamins, therapeutics tablet PO SCH (09:53)
[2021-10-07] MEDS: heparin, porcine 5000 units/ml vial SQ SCH (09:54)
[2021-10-07 11:00] VITALS: BP 124/76
[2021-10-07] MEDS: anastrozole 1 MG tablet PO SCH (11:15)
[2021-10-07] MEDS: thiamine 100mg/ml 2ml inj. IV SCH (11:16)
[2021-10-07] MEDS ORDERED: COL0.6T PO (11:41)
[2021-10-07] MEDS ORDERED: IBUP-1984 PO (11:41)
[2021-10-07] MEDS ORDERED: MULT-25 PO (11:41)
[2021-10-07] MEDS ORDERED: THIA50TA10 PO (11:41)
[2021-10-07] MEDS ORDERED: PANT40TA54 PO (11:41)
[2021-10-07] MEDS ORDERED: FOLI0.4T6 PO (11:41)
[2021-10-09] MEDS ORDERED: folic acid 1mg tablet PO SCH (08:00)
[2021-10-09] MEDS ORDERED: thiamine 100mg tablet PO SCH (08:00)
[2021-10-09] MEDS ORDERED: TESTOSTERONE CYPIONATE 200 MG/ML VIAL IM SCH (17:05)
== END 2021-10-07 12:48 | disposition home or self-care (01) | DRG 315 ==
LOC: ER 09:26 → ED HOLD 16:27 → PCU 3S 18:56
PROVIDERS: ADMIT Family Medicine; ATTEND Family Medicine
PROC: B4201ZZ Computerized Tomography (CT Scan) of Abdominal Aorta using Low Osmolar Contrast (ICD-10-PCS; 2021-10-04)
PROC: B4241ZZ Computerized Tomography (CT Scan) of Superior Mesenteric Artery using Low Osmolar Contrast (ICD-10-PCS; 2021-10-04)
PROC: B4281ZZ Computerized Tomography (CT Scan) of Bilateral Renal Arteries using Low Osmolar Contrast (ICD-10-PCS; 2021-10-04)
PROC: B42C1ZZ Computerized Tomography (CT Scan) of Pelvic Arteries using Low Osmolar Contrast (ICD-10-PCS; 2021-10-04)
PROC: B42H1ZZ Computerized Tomography (CT Scan) of Bilateral Lower Extremity Arteries using Low Osmolar Contrast (ICD-10-PCS; 2021-10-04)
PROC: B4211ZZ Computerized Tomography (CT Scan) of Celiac Artery using Low Osmolar Contrast (ICD-10-PCS; 2021-10-04)
PROC: B32T1ZZ Computerized Tomography (CT Scan) of Left Pulmonary Artery using Low Osmolar Contrast (ICD-10-PCS; 2021-10-04)
PROC: B3201ZZ Computerized Tomography (CT Scan) of Thoracic Aorta using Low Osmolar Contrast (ICD-10-PCS; 2021-10-04)
PROC: B32S1ZZ Computerized Tomography (CT Scan) of Right Pulmonary Artery using Low Osmolar Contrast (ICD-10-PCS; 2021-10-04)
PROC: 4A02XM4 Measurement of Cardiac Total Activity, External Approach (ICD-10-PCS; principal; 2021-10-05)
PROC: 3E033HZ Introduction of Radioactive Substance into Peripheral Vein, Percutaneous Approach (ICD-10-PCS; 2021-10-05)
PROC: CF1C1ZZ Planar Nuclear Medicine Imaging of Hepatobiliary System, All using Technetium 99m (Tc-99m) (ICD-10-PCS; 2021-10-07)
DX: I30.1 Infective pericarditis (principal); E23.0 Hypopituitarism; E03.9 Hypothyroidism, unspecified; K21.9 Gastro-esophageal reflux disease without esophagitis; Z20.822 Contact with and (suspected) exposure to COVID-19; E20.9 Hypoparathyroidism, unspecified; F10.20 Alcohol dependence, uncomplicated; K29.00 Acute gastritis without bleeding; F17.220 Nicotine dependence, chewing tobacco, uncomplicated; F90.9 Attention-deficit hyperactivity disorder, unspecified type; R70.0 Elevated erythrocyte sedimentation rate; R79.82 Elevated C-reactive protein (CRP); R94.6 Abnormal results of thyroid function studies; Z82.49 Family history of ischemic heart disease and other diseases of the circulatory system; Z71.6 Tobacco abuse counseling
CPT/HCPCS: 36415; 71045; 71275; 74174; 76700; 78227; 78452; 80053; 80061; 80305; 80320; 81001; 83036; 83690; 83735; 83880; 84100; 84145; 84443; 84484; 85025; 85379; 85610; 85651; 85730; 86140; 87081; 87502; 87503; 87635; 93005; 93017; 93306; 94640; 94760; 99285; A9500; A9537; C9113; C9803; G0378; J1170; J1644; J2060; J2270; J2785; J2805; J3411; J3490; J7030; Q9967

== ENCOUNTER 2024-03-24 10:04 | Emergency (ER) | payer BC ==
[~2024-03-24] VITALS: Ht 177.8 cm; Wt 93.0 kg
[~2024-03-24 10:04] MED LIST changes: +ANAS1TAB10; +COL0.6T PO; +FLUT16SP26 BOTHNARES; -LEVO25TA2 PO; +LISD60CA PO; +MULT-25 PO; +PANT40TA54 PO; +SYN0.088T; +THIA50TA10 PO
[2024-03-24] MEDS ORDERED: fentaNYL/PF 50MCG/1 ML 2ML syringe IV ONE (12:20)
[2024-03-24 12:21] LABS: BASOPHILS % (AUTO) 0.6 % (0-1); EOSINOPHILS # (AUTO) 0.2 X10'3 (0-0.9); EOSINOPHILS % (AUTO) 2.8 % (0-6); HEMATOCRIT 45.2 % (42.0-52.0); HEMOGLOBIN 15.2 g/dl (14.0-17.9); LYMPHOCYTES # (AUTO) 1.4 X10'3 (1.1-4.8); LYMPHOCYTES % (AUTO) 16.8 % (21-51); MEAN CORPUSCULAR HEMOGLOBIN 31.2 PG (27.0-31.0); MEAN CORPUSCULAR HGB CONC 33.6 g/dL (33.0-36.5); MEAN CORPUSCULAR VOLUME 92.8 FL (78-98); MEAN PLATELET VOLUME 12.1 FL (7.4-10.4); MONOCYTES # (AUTO) 0.8 X10'3 (0-0.9); MONOCYTES % (AUTO) 9.7 % (2-12); NEUTROPHILS # (AUTO) 5.8 X10'3 (1.8-7.7); NEUTROPHILS % (AUTO) 70.1 % (42-75); PLATELET COUNT 93 X10'3 (140-440); RED BLOOD COUNT 4.87 X10'6 (4.70-6.10); RED CELL DISTRIBUTION WIDTH 13.7 % (11.5-14.5); WHITE BLOOD COUNT 8.3 X10'3 (4.5-11.0)
[2024-03-24 12:23] LABS: INR 1.1 INR; PROTHROMBIN TIME 11.5 SECONDS (9.0-12.0)
[2024-03-24] MEDS: ketorolac trometh 30MG/ML vial 30 MG/ML VIAL IV ONE (12:30)
[2024-03-24 12:31] LABS: ALANINE AMINOTRANSFERASE 35 U/L (12-78); ALBUMIN 4.2 G/DL (3.4-5.0); ALBUMIN/GLOBULIN RATIO 1.1 (1.1-1.5); ALKALINE PHOSPHATASE 71 IU/L (46-116); ANION GAP 11 (8-16); ASPARTATE AMINO TRANSFERASE 30 U/L (10-37); BLOOD UREA NITROGEN 25 MG/DL (7-18); BUN/CREATININE RATIO 21.9 (10.0-20.0); CALCIUM 8.6 MG/DL (8.5-10.1); CHLORIDE 106 MMOL/L (99-107); CREATININE 1.14 MG/DL (0.60-1.10); GLUCOSE 88 MG/DL (70-104); SODIUM 141 MMOL/L (135-145); TOTAL CARBON DIOXIDE 24.2 MMOL/L (24-32); TOTAL PROTEIN 7.9 G/DL (6.4-8.2); eCRCL 81 ML/MIN; eGFR 83 ML/MIN
[2024-03-24] MEDS: ketamine 50mg/5ml syringe IV ONE (12:33)
[2024-03-24 12:37] LABS: POTASSIUM 4.3 MMOL/L (3.5-5.1)
[2024-03-24] MEDS: ampicillin/sulbac 3gm/NS 100ml 100 ML IV ONE (12:45)
[2024-03-24] MEDS: LIDOcaine 1% W/epiNEPHrine 1:100,000 20ml vial IJ ONE (12:53)
[2024-03-24 13:29] VITALS: BP 119/71; PULSE 66; RESP 16; TEMP 98.2; O2SAT 97
== END 2024-03-24 14:38 | disposition short-term general hospital (02) ==
LOC: ER 10:04
DX: S02.32XA Fracture of orbital floor, left side, initial encounter for closed fracture (principal); S22.32XA Fracture of one rib, left side, initial encounter for closed fracture; S27.0XXA Traumatic pneumothorax, initial encounter; H53.2 Diplopia; H50.682 Extraocular muscle entrapment, unspecified, left eye; F15.90 Other stimulant use, unspecified, uncomplicated; Z79.899 Other long term (current) drug therapy; V29.99XA Rider (driver) (passenger) of other motorcycle injured in unspecified traffic accident, initial encounter; Y93.89 Activity, other specified; Y92.89 Other specified places as the place of occurrence of the external cause; Y99.8 Other external cause status
CPT/HCPCS: 32554; 70450; 70486; 71045; 71101; 80053; 85025; 85610; 93005; 99285; A6223; J0295; J1885; J3490; A4620; A6449